=== PATIENT | female | born 1975 | race Caucasian/White ===

== ENCOUNTER 2021-08-16 16:13 | Outpatient (CLI) | payer OTHER, SELFPAY ==
--- NOTE | ~2021-08-16 | MM_ITS ---
EXAMINATION: MM screening [facility] BI w mikal HISTORY: Screening mammogram TECHNIQUE: Craniocaudal and mediolateral oblique 3-D tomosynthesis images were obtained and synthetic 2-D images were generated. CAD analysis was submitted and interpreted. COMPARISON: No prior mammogram is available for comparison at this institution. BREAST PARENCHYMAL COMPOSITION: The breasts are heterogeneously dense, which may obscure small masses . FINDINGS: There is no evidence of suspicious mass, calcification, or architectural distortion to sugg est malignancy in either breast. There has been no suspicious interval change. IMPRESSION: 1. No mammographic evidence of malignancy. 2. Recommend routine screening mammography in one year. BI-RADS Category 1: Negative Reviewed, dictated and finalized at location A. RNEY LAWYER
== END 2021-08-16 16:14 | disposition home or self-care (01) ==
PROVIDERS: PCP Internal Medicine; Visit Provider Internal Medicine
DX: Z12.31 Encounter for screening mammogram for malignant neoplasm of breast (principal)
CPT/HCPCS: 77063; 77067

== ENCOUNTER 2022-06-03 08:37 | Emergency (ER) | payer OTHER, SELFPAY ==
[2022-06-03 09:05] VITALS: BP 116/89; PULSE 87; RESP 16; TEMP 38; O2SAT 100
--- NOTE | 2022-06-03 09:24 | ED.URI ---
HPI - URI/Sore Throat General Chief Complaint: Upper Respiratory Infection Stated Complaint: sore throat Time Seen by Provider: 06/03/22 09:24 History of Present Illness HPI Narrative: 46 y/o female presented for c/o sore throat onset 2 nights ago and has worsened over the last 2 days. Endorses choking sensation and dry cough, pain worse with swallowing, feels like she has to force herself to swallow. Endorses yesterday low back pain, stating she had back pain the last time she had strep throat. Taking ibuprofen and salt water gargles. Children sick about 2 weeks ago. Denies sinus congestion, nausea, vomiting, diarrhea, sob, or wheezing. Related Data Home Medications Medication Instructions Recorded Confirmed norethindrone 1 mg-ethinyl 1 tablet PO DAILY 06/03/22 06/03/22 estradiol 20 mcg (21)-iron 75 mg (7) tablet (Allegra Fe 10/25 (28)) Allergies Allergy/AdvReac Type Severity Reaction Status Date / Time MEPERIDINE HCL Allergy Mild VOMITING Uncoded 06/03/22 09:04 Review of Systems Review of Systems: CONSTITUTIONAL: Denies body aches, fever, chills, or sweats. EYES: Denies visual changes, redness, or discharge. ENT: reports sore throat Denies rhinorrhea, congestion, or otalgia. CARDIOVASCULAR: Denies chest pain, palpitations, or edema. RESPIRATORY: Denies dyspnea. GASTROINTESTINAL: Denies abdominal pain, nausea, vomiting, or diarrhea. MUSCULOSKELETAL: reports back pain NEUROLOGIC: Denies headache Exam Narrative: GENERAL: well-appearing, no acute distress. EYES: conjunctivae clear ENT: Mucous membranes moist. TMs pearly hernández with normal light reflex bilaterally; no tragal tenderness. Oropharynx erythematous without lesions or exudate. No drooling, no hoarseness, no trismus, uvula midline. No tripod positioning, hot potato voice, or soft palate swelling. NECK: Supple. No lymphadenopathy CHEST: Clear to auscultation, breath sounds equal. No respiratory distress, speaks in full sentences. HEART: Regular rate and rhythm. SKIN: Warm, dry, no rash. NEURO: Alert and oriented x3. Course Course Emergency Course: Patient is aware of diagnosis, understands and agrees to treatment plan. Anticipatory guidance given. Patient agrees to follow-up as directed and is aware of reasons to seek care at the emergency department. Portions of this record may have been created with voice recognition software Level of Care: Express Care Visit Vital Signs Vital signs: Vital Signs Temperature 100.4 F H 06/03/22 09:05 Pulse Rate 87 06/03/22 09:05 Respiratory Rate 16 06/03/22 09:05 Blood Pressure 116/89 06/03/22 09:05 Pulse Oximetry 100 06/03/22 09:05 Temperature 100.4 F H 06/03/22 09:05 Pulse Rate 87 06/03/22 09:05 Respiratory Rate 16 06/03/22 09:05 Blood Pressure 116/89 06/03/22 09:05 Pulse Oximetry 100 06/03/22 09:05 MDM - URI/Sore Throat MDM Narrative Medical decision making narrative: covid and strep result reviewed with pt. Advise supportive treatments and s/s to go to the ER. Will give abx and steroid based on PE. Aware she will be notified of the strep culture results. Patient is appropriate for outpatient treatment and follow-up. Differential Diagnosis Differential diagnosis: Likely upper respiratory infection, viral infection and pharyngitis Lab Data Labs: Strep Screen Presumptive Negative *(Reference Range: Negative)* Discharge Plan Discharge Clinical Impression: Pharyngitis Patient Disposition: Home, Self-Care Condition: Stable Instructions: Pharyngitis (ED) Additional Instructions: Rapid strep swab was negative today You will be notified in a few days if the culture comes back positive for strep, and appropriate antibiotics will be called in at that time. if symptoms are due to a viral illness, it is not treated with antibiotics. Viral symptoms can be present for up to 10-14 days. Avoid
== END 2022-06-03 10:21 | disposition home or self-care (01) ==
PROVIDERS: Emergency Provider Nurse Practitioner Family; PCP Internal Medicine
DX: J02.9 Acute pharyngitis, unspecified (principal); Z20.822 Contact with and (suspected) exposure to COVID-19
CPT/HCPCS: 87081; 87426; 87880; 99213; C9803; G0463

== ENCOUNTER 2022-10-25 10:27 | Outpatient (CLI) | payer OTHER, SELFPAY ==
--- NOTE | ~2022-10-25 | MM_ITS ---
EXAMINATION: MM screening [facility] BI w mikal HISTORY: Screening mammogram TECHNIQUE: Craniocaudal and mediolateral oblique 3-D tomosynthesis images were obtained and synthetic 2-D images were generated. CAD analysis was submitted and interpreted. COMPARISON: 08/16/2021 BREAST PARENCHYMAL COMPOSITION: The breasts are heterogeneously dense, which may obscure small masses . FINDINGS: RIGHT BREAST: An asymmetry is present in the posterior third of the inner breast on the craniocaudal view. LEFT BREAST: An asymmetry is present in the posterior third of the lower breast on the mediolateral o blique view. IMPRESSION: 1. Bilateral breast asymmetries. 2. Additional mammographic views and possible breast ultrasound are recommended. BI-RADS Category 0: Incomplete: Needs additional imaging evaluation. Reviewed, dictated and finalized at location A. OTYPE MACHINE OPERATOR IMPRESSION: 1. Bilateral breast asymmetries. 2. Additional mammographic views and possible breast ultrasound are recommended . BI-RADS Category 0: Incomplete: Needs additional imaging evaluation.
== END 2022-10-25 10:28 | disposition home or self-care (01) ==
LOC: ANHIMG 10:30
PROVIDERS: PCP Internal Medicine; Visit Provider Obstetrics & Gynecology
DX: Z12.31 Encounter for screening mammogram for malignant neoplasm of breast (principal); R92.8 Other abnormal and inconclusive findings on diagnostic imaging of breast
CPT/HCPCS: 77063; 77067

== ENCOUNTER 2022-11-15 11:53 | Outpatient (CLI) | payer OTHER, SELFPAY ==
--- NOTE | ~2022-11-15 | MMUS_ITS ---
EXAMINATION: MM diagnostic chris BI w mikal, US breast BI complete HISTORY: Asymmetry reported in posterior third of inner right breast on craniocaudal view and posteri or third of lower breast on left MLO view on 10/25/2022 bilateral screening mammogram examination TECHNIQUE: Additional 3-D tomosynthesis images of were performed and synthetic 2-D images were genera evens. CAD analysis was submitted and interpreted. High resolution breast ultrasound was performed. COMPARISON: 10/25/2022 bilateral screening mammogram BREAST PARENCHYMAL COMPOSITION: The breasts are heterogeneously dense, which may obscure small masses . FINDINGS: MAMMOGRAPHIC FINDINGS: No suspicious mass or architectural distortion, malignant calcification, skin thickening or retractio n of either breast is evident. The heterogeneously dense stroma may obscure masses. ULTRASOUND: No suspicious mass or shadowing of either breast is detected. Right breast: 1:00 near nipple: 4.3 x 4.8 x 2.7 mm parallel circumscribed hypoechoic lesion without internal vascul arity or posterior shadowing, benign in appearance Left breast: O'clock near nipple: 4.3 x 4.9 x 4.2 mm sonolucency with through transmission posterior enhancement, no internal vascularity, consistent with cyst IMPRESSION: 1. Benign findings 2. Routine annual mammographic screening is recommended BI-RADS Category 2: Benign finding(s). Reviewed, dictated and finalized at location A. DESIGNER APPRENTICE IMPRESSION: 1. Benign findings 2. Routine annual mammographic screening is recommended BI-RADS Category 2: Benign finding(s).
== END 2022-11-15 11:54 | disposition home or self-care (01) ==
PROVIDERS: PCP Internal Medicine; Visit Provider Obstetrics & Gynecology
DX: R92.8 Other abnormal and inconclusive findings on diagnostic imaging of breast (principal)
CPT/HCPCS: 76641; 77062; 77066; G0279

== ENCOUNTER 2023-06-06 11:03 | Emergency (ER) | payer OTHER, SELFPAY ==
[2023-06-06 11:20] VITALS: BP 114/80; PULSE 87; RESP 16; TEMP 37.1; O2SAT 100
--- NOTE | 2023-06-06 12:41 | ED.URI ---
HPI - URI/Sore Throat General Chief Complaint: Upper Respiratory Infection Stated Complaint: Sore Throat/Headache Time Seen by Provider: 06/06/23 12:34 Source: patient and RN notes reviewed Mode of arrival: ambulatory Limitations: no limitations History of Present Illness HPI Narrative: Patient presents today complaining of 3 day history of sore throat, headache, congestion, fatigue, body aches. Currently rates her pain 4/10 and has been taking Advil cold and flu, Rema, Flonase with mild relief. Related Data Home Medications Medication Instructions Recorded Confirmed norethindrone 1 mg-ethinyl 1 tablet PO DAILY 06/03/22 06/03/22 estradiol 20 mcg (21)-iron 75 mg (7) tablet (Allegra Fe 10/25 (28)) fluticasone propionate 50 intranasal 06/06/23 mcg/actuation nasal spray,suspension meclizine 25 mg tablet mg 06/06/23 Allergies Allergy/AdvReac Type Severity Reaction Status Date / Time MEPERIDINE HCL Allergy Mild VOMITING Uncoded 06/06/23 12:30 Review of Systems Review of Systems: CONSTITUTIONAL: Denies fever, chills, or sweats.+ body aches, fatigue EYES: Denies visual changes, redness, or discharge. ENT: Denies rhinorrhea, or otalgia.+ congestion, sore throat CARDIOVASCULAR: Denies chest pain, palpitations, or edema. RESPIRATORY: Denies cough or dyspnea. GASTROINTESTINAL: Denies abdominal pain, nausea, vomiting, or diarrhea. GENITOURINARY: Denies dysuria or hematuria. SKIN: Denies rash, itching, or wounds. MUSCULOSKELETAL: Denies back pain, joint pain, or myalgia. NEUROLOGIC: Denies numbness, tingling, or weakness.+ headache PSYCH: Denies depression or anxiety. PMFSH Comments At time of signature, I have reviewed and agree with nursing past medical, surgical, social and family history unless otherwise noted. Please see nursing chart for further information. There is no relevant family history pertinent to the presenting complaint Exam Narrative: GENERAL: Mildly-appearing, well-nourished, and in no acute distress. HEAD: Normocephalic, atraumatic. EYES: EOMI. No redness or drainage. Conjunctivae normal. ENT: Mucous membranes pink and moist. Nares clear. No rhinorrhea. TMs normal bilaterally. Throat erythematous. Uvula midline. NECK: Normal AROM. Supple. Bilateral anterior cervical chain CHEST: No respiratory distress. Clear to auscultation. HEART: Regular rate and rhythm. No murmur appreciated. Normal peripheral pulses. EXTREMITIES: Normal range of motion. No edema. SKIN: Warm, dry, no rash. Capillary refill normal. Normal skin turgor. NEURO: No focal deficits. Alert and oriented x3. Gait steady. PSYCH: Normal affect. No signs of depression or anxiety. Course Course Level of Care: Express Care Visit Vital Signs Vital signs: Vital Signs Temperature 98.7 F 06/06/23 11:20 Pulse Rate 87 06/06/23 11:20 Respiratory Rate 16 06/06/23 11:20 Blood Pressure 114/80 06/06/23 11:20 Pulse Oximetry 100 06/06/23 11:20 Oxygen Delivery Room Air 06/06/23 11:20 Temperature 98.7 F 06/06/23 11:20 Pulse Rate 87 06/06/23 11:20 Respiratory Rate 16 06/06/23 11:20 Blood Pressure 114/80 06/06/23 11:20 Pulse Oximetry 100 06/06/23 11:20 Oxygen Delivery Room Air 06/06/23 11:20 Reviewed MDM - URI/Sore Throat MDM Narrative Medical decision making narrative: Rapid strep positive. Prescription for amoxicillin sent to pharmacy. Anticipatory guidance given Differential Diagnosis Differential diagnosis: Likely upper respiratory infection, viral infection, pharyngitis and other (Strep throat) Lab Data Attestation: I reviewed the patient's lab results. Labs: Strep Screen Positive Group A Strep *(Reference Range: Negative)* Critical Care Time Critical Care Time Critical Care Time: No Discharge Plan Discharge Clinical Impression: Strep throat Patient Disposition: Home, Self-Care Cond
== END 2023-06-06 12:50 | disposition home or self-care (01) ==
PROVIDERS: Emergency Provider Nurse Practitioner; PCP Internal Medicine
DX: J02.9 Acute pharyngitis, unspecified (principal); Z20.822 Contact with and (suspected) exposure to COVID-19
CPT/HCPCS: 87426; 87880; 99213; C9803; G0463

== ENCOUNTER 2024-02-05 15:14 | Outpatient (CLI) | payer OTHER, SELFPAY ==
--- NOTE | ~2024-02-05 | MM_ITS ---
EXAMINATION: MM screening [facility] BI w mikal HISTORY: Screening mammogram TECHNIQUE: Craniocaudal and mediolateral oblique 3-D tomosynthesis images were obtained and synthetic 2-D images were generated. CAD analysis was submitted and interpreted. COMPARISON: November 15, 2022 diagnostic bilateral mammogram and bilateral complete breast ultrasound examination October 15, 2022, August 16, 2021 bilateral screening mammogram examinations BREAST PARENCHYMAL COMPOSITION: The breasts are heterogeneously dense, which may obscure small masses . FINDINGS: There is no evidence of suspicious mass, calcification, or architectural distortion to sugg est malignancy in either breast. There has been no suspicious interval change. IMPRESSION: 1. No mammographic evidence of malignancy. 2. Recommend routine screening mammography in one year. BI-RADS Category 1: Negative Reviewed, dictated and finalized at location A.
== END 2024-02-05 15:15 | disposition home or self-care (01) ==
PROVIDERS: PCP Internal Medicine; Visit Provider Obstetrics & Gynecology
DX: Z12.31 Encounter for screening mammogram for malignant neoplasm of breast (principal)
CPT/HCPCS: 77063; 77067

== ENCOUNTER 2024-08-26 07:07 | Day surgery (SDC) | payer OTHER, SELFPAY ==
[2024-07-07 08:08] VITALS: BMI 22.9
[2024-08-13 08:58] VITALS: BMI 21.9
[2024-08-26 08:19] VITALS: BP 108/81; PULSE 78; RESP 15; TEMP 36.9; O2SAT 100
[2024-08-26] MEDS: LACTATED RINGERS 1,000 ML 150 ML IV CONT (08:23)
--- NOTE | 2024-08-26 08:35 | P.HP_ITS ---
History of Present Illness History of Present Illness Consent: Risks, benefits, and alternatives have been discussed and questions answered. Patient agrees to proceed with procedure. Chief complaint: Neoplasm Screening Narrative: Halle Pina is a 48 year old female presents for colonoscopy. Patient's current weight appetite and bowel movements are normal. She denies abdominal pain. Patient has had no bleeding. Family history is noncontributory. Review of Systems Review of Systems: All systems reviewed & are unremarkable except as noted in HPI and below PMFSH Social History Social History Smoking status: Never smoker Alcohol intake: current Drinks per week: 2 Substance use type: does not use Living arrangements: with family Spiritual care concerns: No Meds Home Medications and Allergies Home Medications Medication Instructions Recorded Confirmed Type norethindrone 1 mg-ethinyl 1 tablet PO DAILY 06/03/22 08/26/24 History estradiol 20 mcg (21)-iron 75 mg (7) tablet (Allegra Fe 10/25 (28)) fluticasone propionate 50 1 spray intranasal DAILY 06/06/23 08/26/24 History mcg/actuation nasal spray,suspension fexofenadine 180 mg tablet 180 mg PO DAILY 08/13/24 08/26/24 History Allergies Allergy/AdvReac Type Severity Reaction Status Date / Time hydrocodone AdvReac Severe Nausea Verified 08/26/24 08:18 meperidine AdvReac Mild Vomiting Verified 08/26/24 08:18 Vital Signs Vital Signs - 24 hr 08/26/24 08:19 Temperature 98.5 F Pulse Rate 78 Respiratory Rate 15 Blood Pressure 108/81 Pulse Oximetry 100 Oxygen Delivery Room Air Exam Narrative: Physical exam reveals patient to be alert a signs stable. HEENT exam is unremarkable. Patient is anicteric. Lungs are clear to auscultation and to p ercussion. Heart is without murmur or extra sounds. Abdomen bowel sounds are present soft nontender with no organomegaly. Digital external rectal exam is normal. Assessment and Plan Assessment and plan (1) Screen for colon cancer: Code(s): Z12.11 - Encounter for screening for malignant neoplasm of colon Status: Acute Assessment and Plan: Patient presents today for screening colonoscopy. She appears to be at average risk for colon polyps. Further recommendations may be given after endoscopy.
--- NOTE | 2024-08-26 08:41 | P.PNAN_ITS ---
Anes - Initial Pre Proc Eval Procedure: Operation Date: 08/26/24 09:30 Proposed Procedures p Screening Colonoscopy - Vidal Chawla MD Date/Time: 08/26/24 08:41 Surgeon: Vidal Chawla MD Pre Op Diagnosis: Neoplasm Screening Patient Data Age: 48 Gender: F Height: 1.63 m Weight: 60.75 kg Last Vital Signs Temp 36.9 C 08/26/24 08:19 Pulse 78 08/26/24 08:19 Resp 15 08/26/24 08:19 BP 108/81 08/26/24 08:19 Pulse Ox 100 08/26/24 08:19 O2 Del Method Room Air 08/26/24 08:19 Allergies Allergy/AdvReac Type Severity Reaction Status Date / Time hydrocodone AdvReac Severe Nausea Verified 08/26/24 08:18 meperidine AdvReac Mild Vomiting Verified 08/26/24 08:18 Home Medications Medication Instructions Recorded Confirmed Type norethindrone 1 mg-ethinyl 1 tablet PO DAILY 06/03/22 08/26/24 History estradiol 20 mcg (21)-iron 75 mg (7) tablet (Allegra Fe 10/25 (28)) fluticasone propionate 50 1 spray intranasal DAILY 06/06/23 08/26/24 History mcg/actuation nasal spray,suspension fexofenadine 180 mg tablet 180 mg PO DAILY 08/13/24 08/26/24 History Patient hx anesthesia problems: none Family hx anesthesia problems: none Results Review: All pre-operative results and documents have been reviewed as part of the pre- operative evaluation. ON LICENSE OF [facility] Social History Social History Smoking status: Never smoker Alcohol intake: current Drinks per week: 2 Substance use type: does not use Living arrangements: with family Spiritual care concerns: No Anes - Eval Final PreProcedure Day of Procedure 08/26/24 08:41 Patient weight: normal Heart: regular rate and rhythm Lungs: clear to auscultation Airway: Mallampati scale class 1 Neurological: alert and oriented Last oral intake: >/= 8 hours ASA classification: I Emergent: no Anesthetic plan: proceed Anesthesia type and monitoring: general GIVS and standard monitoring Results Review: All pre-operative results and documents have been reviewed as part of the pre- operative evaluation. Informed Consent: The patient's anesthetic plan and its attendant risks and benefits were discussed with the patient/family/POA. Questions were solicited and answers provided to the satisfaction of the patient/family/POA.
[2024-08-26 09:29] VITALS: BP 114/91; PULSE 87; RESP 14; O2SAT 99
[2024-08-26 09:39] VITALS: BP 104/74; PULSE 81; RESP 14; O2SAT 99
[2024-08-26 09:49] VITALS: BP 104/77; PULSE 77; RESP 13; O2SAT 100
--- NOTE | 2024-08-26 10:04 | WPDANESPN ---
Anes - Prog Note Post-Op Date/Time: 08/26/24 10:04 Cardiovascular status: normal Respiratory status: normal Airway patency: baseline Mental status: baseline Post-Op hydration status: normal Vital Signs: Last Vital Signs Temp 36.9 C 08/26/24 08:19 Pulse 77 08/26/24 09:49 Resp 13 08/26/24 09:49 BP 104/77 08/26/24 09:49 Pulse Ox 100 08/26/24 09:49 O2 Del Method Room Air 08/26/24 09:49 Pain Score (VAS): 0/10 I/O: Intake & Output 08/25/24 08/26/24 08/26/24 23:59 07:59 15:59 Intake Total 450 Balance 450 Patient Feedback: Patient satisfied with anesthetic care.
== END 2024-08-26 10:05 | disposition home or self-care (01) ==
PROVIDERS: PCP Registered Nurse; Visit Provider Internal Medicine Gastroenterology
PROC: 0DJD8ZZ Inspection of Lower Intestinal Tract, Via Natural or Artificial Opening Endoscopic (ICD-10-PCS; CPT 45378; principal; 2024-08-26 09:30)
DX: Z12.11 Encounter for screening for malignant neoplasm of colon (principal)
CPT/HCPCS: 45378

== ENCOUNTER 2025-02-08 16:21 | Outpatient (CLI) | payer OTHER, SELFPAY ==
--- NOTE | ~2025-02-08 | MM_ITS ---
EXAMINATION: MM screening chris BI w mikal HISTORY: Screening TECHNIQUE: Craniocaudal and mediolateral oblique 3-D tomosynthesis images were obtained and synthetic 2-D images were generated. CAD analysis was submitted and interpreted. COMPARISON: Comparison to multiple prior studies sequentially, with oldest reviewed study dated 08/06. BREAST PARENCHYMAL COMPOSITION: Dense: The breasts are extremely dense, which lowers the sensitivity of mammography. FINDINGS: There is no evidence of suspicious mass, calcification, or architectural distortion to sugg est malignancy in either breast. There has been no suspicious interval change. IMPRESSION: 1. No mammographic evidence of malignancy. 2. Recommend routine screening mammography in one year. BI-RADS Category 1: Negative Reviewed, dictated and finalized at location A.
--- OUTSIDE RECORDS SUMMARY | 2025-02-08 16:23 | XMS_ITS | Continuity of Care Document ---
Author Organization Formerly [facility] Address [address] [place] [address] Phone Care Team Providers Care Customs Consultant Name Role Phone Christensen OD, Vidal Unavailable Unavailable Advance Directives Directive Yes / No Effective Date File Name No Information Encounters Encounter Description Practice Location Reason(s) For Visit Diagnoses Date Provider Providers Copied on Encounter [facility], [address], [place], [place], [id number], [place] tel:[phone] [facility] Álvaro Rea No Information 4-200 6 Christensen OD Vidal. [address] , [address], [place], [address], [place]. tel:[phone] Family History Family Member Type Diagnosis Age At Onset No Information Payers Payer name Insurance type Covered constitution party ID Authoriza tion(s) No Information Social History Type Description Quantity Date Captured Comments Sex Female Smoking Status No Information Chief Complaint And Reason For Visit No Information Reason For Referral Reason For Referral No Information History Of Present Illness Encounter Date Complaint History Of Prese nt Illness No Information Functional Status Date Functional Assessmen t No Information Instructions Date Instruction Additional Infor mation No Information Assessments Type Assessment Date No Information Patient Care Teams Name Effective Dates (start - stop) Status Members No Information
--- OUTSIDE RECORDS SUMMARY | 2025-02-08 16:24 | XMS_ITS | Clinical Summary ---
Author Organization [facility] Address [address] [place] [id number] Care Team Providers Care Grinder Machine Setter Name Role Phone Kenn Moe MD Primary Care Provider [phone] Allergies Active Allergy Reactions Criticality Noted Date Comments Hydrocodone-Acetaminophen Nausea Only 2 Meperidine Vomiting 05/11/2012 Medications RADHA FE 10/25 1-20 MG-MCG tablet Take 1 tablet by mouth daily. 02/01/2019 Active fexofenadine 180 MG tablet Take 1 tablet (180 mg total) by mouth daily. Active Olopatadine HCl (PATADAY OP) 04/20/2024 Active fexofenadine (NICK) 180 MG tabletIndicatio ns:Seasonal allergies Take 1 tablet (180 mg total) by mouth daily. 90 tablet 3 06/24/2024 Active olopatadine (PATADAY) 0.7 % ophthalmic solutionIndicat ions:Seasonal allergies Place 1 drop into both eyes daily. 2.5 mL 11 06/24/2024 Active fluticasone propionate (FLONASE) 50 MCG/ACT nasal sprayIndication s:Seasonal allergies INSTILL TWO (2) SPRAYS INTO EACH NOSTRIL DAILY 16 g 3 09/21/2024 Active Active Problems No known active problems Resolved Problems Problem Noted Date Diagnosed Date Resolved Date Renal cyst 02/21/2014 01/10/2022 Headache 05/11/2012 06/24/2024 Immunizations Immunization Administration Dates Next Due Hepatitis B Vaccine Adult 01/18/2009,03/30/2008, 02/16/2008 Td 07/18/2000 Tdap (Adacel) 06/24/2024 Family History Medical History Relation Comments Depression Father Heart Disease Father Hypertension Father Cancer Maternal Grandfather Diabetes Maternal Grandfather Kidney Disease Maternal Grandfather Breast Cancer Maternal Grandmother Cancer Maternal Grandmother Diabetes Maternal Grandmother Heart Disease Maternal Grandmother Stroke Maternal Grandmother Deep vein thrombosis Mother Fibromyalgia Mother Heart Disease Mother Stroke Mother Thyroid Disease Mother Breast Cancer Paternal Grandmother Diabetes Paternal Grandmother Hypertension Paternal Grandmother Stroke Paternal Grandmother Relation Status Comments Father Maternal Grandfather Maternal Grandmother Mother Paternal Grandmother Social History Tobacco Use Types Packs/Day Years Used Date Smoking Tobacco: Never Smokeless Tobacco: Never Alcohol Use Standard Drinks/Week Comments Yes 3.3 (1 standard drink = 0.6 oz p ure alcohol) social events AUDIT-C Answer Date Recorded Frequency of Alcohol Consumption 2-3 times a wee k 02/04/2019 Average Number of Drinks 1 or 2 019 Frequency of Binge Drinking Never 11/2018 PHQ-2 Answer Date Recorded Patient Health Questionnaire-2 Score 0 06/24/2024 Comments No Sex and Gender Information Value Date Recorded Sex Assigned at Female 02/04/2019 8:20 AM CDT 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 Gender Identity Female 02/04/2019 8:20 AM CDT Sexual Orientation Straight 02/04/2019 8: 20 AM CDT Last Filed Vital Signs Vital Sign Reading Time Taken Comments Blood Pressure 104/64 06/24/2024 9:33 AM CDT Pulse 73 06/24/2024 9:33 AM CDT Temperature 36.3 C (97.4 F) 06/24/2024 9:33 AM CDT Respiratory Rate 16 06/24/2024 9:33 AM CDT Oxygen Saturation 99% 06/24/2024 9:33 AM CDT Inhaled Oxygen Concentration - - Weight 60.5 kg (133 lb 6.4 oz) 06/24/2024 9:33 A M CDT Height 162.6 cm (5' 4 ) 06/24/2024 9:33 AM CDT Body Mass Index 22.9 06/24/2024 9:33 AM CDT Plan of Treatment Health Maintenance Due Date Last Done Comments Colorectal Cancer Screening Colonoscopy (10 Years) 1975 Cervical Cancer Screening Pap with HPV Testing (Age 30 to 64) Every 5 Years 12/10/2005 Cervical Cancer Screening Pap Smear (Age 30 to 64) Every 3 Years 02/16/2021 02/16/2018 COVID-19 Vaccine ( season) 2024 PHQ-2 (Physician [place]) 10/06/2024 06/24/2024 Annual Physical 06/24/2025 06/24/2024, 07/12/2021 Cervical Cancer Screening with HPV 06/24/2025 Postponed from 02/16/2021 (Going to Outside Clinic) Mammogram Screening 02/04/2026 02/05/2024, 11/15/2022, 10/25/2022, Additional history exists DTaP, Tdap and Td Vaccines (2 - Td or Tdap) 06/24/2034 06/24/2024, 07/18/2000 Hepatitis B Vaccines Completed 01/18/2009, 03/30/2008, 02/16/2008 Hepatitis C Completed 07/08/2024 Meningococcal B Vaccine Aged Out No l onger eligible based on patient's age to complete this topic Meningococcal Vaccine Aged Out No blas rosanna eligible based on patient's age to complete this topic Pneumococcal Vaccine: Pediatrics (0 to 5 Years) and At-Risk Patients (6 to 49 Years) Aged Out No longer eligible based on patient's age to complete this topic RSV Immunizations Under 20 Months Aged Out No longer eligible based on patient's age to complete this topic Procedures Procedure Name Priority Date/Time Associated Diagnosis Comments HEPATITIS C ANTIBODY Routine 07/08/2024 8:27 AM CDT Need for hepatitis C screening test MAMMOGRAM GENERIC (SCAN ORDER) 02/05/2024 OUTSIDE CYTOPATH CERV/VAG INTERPRET (PAP) (SCAN ORDER) Routine 02/16/2018 from Last 3 Months or Most Recently Relevant to Health Maintenance Results * HEPATITIS C ANTIBODY ([facility] ONLY) (07/08/2024 8:27 AM CDT) HEPATITIS C AB NON-REACTI VE NON-REACT DASHA 07/08/2024 6:51 PM CDT [facility] Comment: ANTIBODIES TO HCV NOT DETECTED. DOES NOT EXCLUDE THE POSSIBILITY OF EXPOSURE TO HCV. 07/08/2024 8:27 AM CDT us Marnie Aquino [facility] Final Resul t [facility] [address] [place] [address], [id number] * MAMMOGRAM GENERIC (SCAN ORDER) (02/05/2024) Anatomical Region Laterality Modality Other 02/05/2024 [facility] Scanned SCANNING Final Resu lt * PAP SMEAR (02/16/2018) 02/16/2018 us Documents Scanned SCANNING Final Result from Last 3 Months or Most Recently Relevant to Health Maintenance Insurance Care Teams Grinder Machine Setter Relationship Specialty Start Date End Date Kenn Moe MD [address] [place], [place] [id number] PCP - General INTERNAL MEDICINE 01/01/19
--- OUTSIDE RECORDS SUMMARY | 2025-02-08 16:24 | XMS_ITS | Encounter Summary ---
Author Organization [facility] Address [address] [place] [address] Care Team Providers Care Railway Signalling Engineer Name Role Phone Kenn Moe MD Primary Care Provider [phone] Encounter Details Date Type Department Care Team (Latest Contact Info) Description 07/08/2023 LegalZoomt Message Enc [facility] Family & Internal Medicine [facility] [address] [place] [phone] Kenn Moe MD [address] [place], [place] [phone] Therapist/counselor recommendation Social History Tobacco Use Types Packs/Day Years [...] Drinking Never 11/2018 PHQ-2 Answer Date Recorded PHQ-2 Score - If the patient scores above 3, please move on to questions 3-9 0 07/12/2021 Comments No Sex and Gender Information Value Date Recorded Sex Assigned at Female 02/04/2019 8:20 AM CDT 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 Gender Identity Female 02/04/2019 8:20 AM CDT Sexual Orientation Straight 02/04/2019 8: 20 AM CDT documented as of this encounter Progress Notes * Kenn Moe MD - 07/08/2023 12:47 PM CDT We can give her the list of counselors documented in this encounter Plan of Treatment Not on file documented as of this encounter Visit Diagnoses Not on filedocumented in this encounter Additional Health Concerns Assessment Noted Time PHQ-9 Depression Total Score: 0 07/12/20 21 3:55 PM CDT documented as of this encounter Care Teams Railway Signalling Engineer Relationship Specialty Start Date End Date Kenn Moe MD [address] [place] [id number] PCP - General INTERNAL MEDICINE 01/01/19 documented as of this encounter
== END 2025-02-08 16:22 | disposition home or self-care (01) ==
PROVIDERS: PCP Registered Nurse; Visit Provider Obstetrics & Gynecology
DX: Z12.31 Encounter for screening mammogram for malignant neoplasm of breast (principal)
CPT/HCPCS: 77063; 77067